=== PATIENT | female | born 1950 | race Caucasian/White ===

== ENCOUNTER → 2017-10-28 | Outpatient (CLI) | payer MEDICARE ==
[~2017-10-28] MED LIST: GADOBUTROL 10 MMOL/10 ML VIAL ONE
== END | disposition home or self-care (01) ==
LOC: CFH 12:39
PROVIDERS: ATTEND Surgery
DX: C50.211 Malignant neoplasm of upper-inner quadrant of right female breast (principal); I51.7 Cardiomegaly
CPT/HCPCS: 82565; A9585; C8908

== ENCOUNTER → 2017-11-16 | Outpatient (CLI) | payer MEDICARE ==
[~2017-11-16] MED LIST changes: +AMLO5TAB2 PO; -GADOBUTROL 10 MMOL/10 ML VIAL ONE; +MULT-709 PO
== END | disposition home or self-care (01) ==
LOC: CARD 10:33
PROVIDERS: ATTEND Internal Medicine Cardiovascular Disease
DX: I10 Essential (primary) hypertension (principal); R07.89 Other chest pain
CPT/HCPCS: 93017; 93306; 93350

== ENCOUNTER → 2017-11-18 | Outpatient (CLI) | payer MEDICARE ==
[~2017-11-18] MED LIST changes: +GADOBUTROL 10 MMOL/10 ML VIAL ONE
== END | disposition home or self-care (01) ==
LOC: CFH 09:38
PROVIDERS: ATTEND Surgery
DX: C50.211 Malignant neoplasm of upper-inner quadrant of right female breast (principal)
CPT/HCPCS: 19085; 77065; 88305; 88341; 88342; A9585; G0461

== ENCOUNTER → 2017-11-19 | Outpatient (CLI) | payer MEDICARE ==
[~2017-11-19] MED LIST changes: -GADOBUTROL 10 MMOL/10 ML VIAL ONE
== END | disposition home or self-care (01) ==
LOC: STAR 12:02
PROVIDERS: ATTEND Surgery
DX: Z01.812 Encounter for preprocedural laboratory examination (principal); C50.911 Malignant neoplasm of unspecified site of right female breast
CPT/HCPCS: 93005

== ENCOUNTER 2017-11-26 09:36 | Day surgery (SDC) | payer MEDICARE ==
[~2017-11-26] VITALS: Ht 167.6 cm; Wt 67.4 kg
[~2017-11-26 09:36] MED LIST changes: +BUPIVACAINE/PF 0.5% ONE; +EPINEPHRINE 1 MG/ML, 1ML ONE; +ISOSULFAN BLUE 10 MG/ML, 5ML IV ONE
[2017-11-26] MEDS ORDERED: GABAPENTIN 300 MG CAPSULE PO ONE (10:00)
[2017-11-26] MEDS ORDERED: ACETAMINOPHEN 500 MG TABLET PO ONE (10:00)
[2017-11-26] MEDS ORDERED: SCOPOLAMINE PATCH, 1.5MG PATCH.TD72 TD ONE (10:00)
[2017-11-26] MEDS ORDERED: LACTATED RINGERS 1,000 ML IV SCH (10:00)
[2017-11-26] MEDS ORDERED: ONDANSETRON 2MG/ML, 2ML IVPush ONE (10:00)
[2017-11-26 10:27] VITALS: BP 138/84
[2017-11-26] MEDS ORDERED: FENTANYL PF 100 MCG/2ML ONE ×2 (11:28→14:09)
[2017-11-26] MEDS ORDERED: MIDAZOLAM 1 MG/ML, 2ML ONE (11:28)
[2017-11-26] MEDS ORDERED: EPHEDRINE 50 MG/ML, 1ML IVPush PRN (11:30)
[2017-11-26] MEDS ORDERED: LABETALOL 5MG/ML, 20ML IV PRN (11:30)
[2017-11-26] MEDS ORDERED: DIPHENHYDRAMINE 50 MG/ML, 1ML IVPush PRN (11:30)
[2017-11-26] MEDS ORDERED: ONDANSETRON 2MG/ML, 2ML IV PRN (11:30)
[2017-11-26] MEDS ORDERED: MEPERIDINE/PF 25MG/0.5ML IVPush PRN (11:30)
[2017-11-26] MEDS ORDERED: OXYcodone 5 MG/5 ML ORAL.SOL UDC PO PRN (11:30)
[2017-11-26] MEDS ORDERED: HYDROmorphone 1 MG/ML, 1ML IV PRN (11:30)
[2017-11-26] MEDS ORDERED: SODIUM CHLORIDE 0.9% 100 ML ONE (11:56)
[2017-11-26] MEDS ORDERED: EPHEDRINE 50 MG/ML, 1ML ONE (12:14)
[2017-11-26] MEDS ORDERED: SUCCINYLCHOLINE 20 MG/ML, 10ML ONE (12:54)
[2017-11-26] MEDS ORDERED: ROCURONIUM 10MG/ML,5ML ONE (12:54)
[2017-11-26] MEDS ORDERED: DEXAMETHASONE 4 MG/ML, 1ML ONE (12:54)
[2017-11-26] MEDS ORDERED: CEFAZOLIN 1,000 MG ONE (12:54)
[2017-11-26] MEDS ORDERED: ONDANSETRON 2MG/ML, 2ML ONE (12:54)
[2017-11-26] MEDS ORDERED: NEOSTIGMINE 1 MG/ML, 10ML ONE (12:54)
[2017-11-26] MEDS ORDERED: PROPOFOL 10 MG/ML, 20ML ONE (12:54)
[2017-11-26] MEDS ORDERED: GLYCOPYRROLATE 0.2MG/1ML, 5ML ONE (12:54)
[2017-11-26] MEDS ORDERED: BUPIVACAINE/PF 0.5% ONE (13:26)
[2017-11-26] MEDS ORDERED: OXYcodone 5 MG/5 ML ORAL.SOL UDC ONE (14:09)
[2017-11-26] MEDS: FENTANYL PF 100 MCG/2ML IV PRN ×2 (14:10→14:15)
== END 2017-11-26 16:10 | disposition home or self-care (01) ==
LOC: OUT 09:36 → EDSTATUS 12:00 → OUT 16:10
PROVIDERS: ATTEND Surgery
DX: C50.911 Malignant neoplasm of unspecified site of right female breast (principal); R59.1 Generalized enlarged lymph nodes; I10 Essential (primary) hypertension; I51.7 Cardiomegaly; Z85.820 Personal history of malignant melanoma of skin; Z72.89 Other problems related to lifestyle; Z87.891 Personal history of nicotine dependence; Z98.890 Other specified postprocedural states
CPT/HCPCS: 19301; 38525; 38792; 88307; 88329; 88333; 88334; A9541; C9898; J0171; J0330; J0690; J1100; J2250; J2405; J2704; J2710; J3010; J3490; J7120

== ENCOUNTER 2018-01-14 13:01 | Day surgery (SDC) | payer MEDICARE ==
[2018-01-12 11:19] LABS: BASOPHILS # (AUTO) 0.04 x10^3/uL (0-0.1); BASOPHILS % (AUTO) 1 % (0-1); EOSINOPHILS # (AUTO) 0.15 x10^3/uL (0-0.4); EOSINOPHILS % (AUTO) 3 % (1-7); LYMPHOCYTES # (AUTO) 1.71 x10^3/uL (1-3.4); LYMPHOCYTES % (AUTO) 31 % (22-44); MD NO; MEAN PLATELET VOLUME 7.1 fL (7.4-10.4); MONOCYTES # (AUTO) 0.38 x10^3/uL (0.2-0.8); MONOCYTES % (AUTO) 7 % (2-9); NEUTROPHILS # (AUTO) 3.28 x10^3/uL (1.8-6.8); NEUTROPHILS % (AUTO) 59 % (42-75); PLATELET COUNT 390 x10^3/uL (130-400); RED BLOOD COUNT 3.99 x10^6/uL (3.82-5.3); RED CELL DISTRIBUTION WIDTH 14.2 % (9.6-15.2)
[~2018-01-14] VITALS: Ht 167.6 cm; Wt 65.1 kg
[~2018-01-14 13:01] MED LIST changes: -AMLO5TAB2 PO; +AMLO5TAB7 PO; -BUPIVACAINE/PF 0.5% ONE; -EPINEPHRINE 1 MG/ML, 1ML ONE; -ISOSULFAN BLUE 10 MG/ML, 5ML IV ONE
[2018-01-14] MEDS ORDERED: MIDAZOLAM 1 MG/ML, 2ML ONE (13:11)
[2018-01-14] MEDS ORDERED: FENTANYL PF 250 MCG/5ML ONE (13:11)
[2018-01-14] MEDS ORDERED: LACTATED RINGERS 1,000 ML IV SCH ×2 (13:19→19:00)
[2018-01-14] MEDS ORDERED: SCOPOLAMINE PATCH, 1.5MG PATCH.TD72 TD ONE (13:30)
[2018-01-14] MEDS ORDERED: ACETAMINOPHEN 500 MG TABLET PO ONE (13:30)
[2018-01-14] MEDS ORDERED: GABAPENTIN 300 MG CAPSULE PO ONE (13:30)
[2018-01-14] MEDS ORDERED: ONDANSETRON ODT 8 MG PO ONE (13:30)
[2018-01-14 13:34] VITALS: BP 133/88
[2018-01-14] MEDS ORDERED: BACITRACIN 50,000 UNIT ONE (14:24)
[2018-01-14] MEDS ORDERED: BUPIVACAINE/PF-EPI 0.5% 1:200K ONE (14:24)
[2018-01-14] MEDS ORDERED: CEFAZOLIN 1,000 MG ONE ×2 (14:24→15:01)
[2018-01-14] MEDS ORDERED: GENTAMICIN 80 MG/2 ML ONE (14:24)
[2018-01-14] MEDS ORDERED: ONDANSETRON 2MG/ML, 2ML ONE (15:01)
[2018-01-14] MEDS ORDERED: PROPOFOL 10 MG/ML, 20ML ONE (15:01)
[2018-01-14] MEDS ORDERED: ROCURONIUM 10MG/ML,5ML ONE (15:01)
[2018-01-14] MEDS ORDERED: DEXAMETHASONE 4 MG/ML, 1ML ONE (15:01)
[2018-01-14] MEDS ORDERED: NEOSTIGMINE 1 MG/ML, 10ML ONE (15:01)
[2018-01-14] MEDS ORDERED: SUCCINYLCHOLINE 20 MG/ML, 10ML ONE (15:01)
[2018-01-14] MEDS ORDERED: GLYCOPYRROLATE 0.2MG/1ML, 5ML ONE (15:01)
[2018-01-14] MEDS ORDERED: BUPIVACAINE/PF-EPI 0.5% 1:200K INFIL ONE (15:12)
[2018-01-14] MEDS ORDERED: LORazepam 2 MG/ML, 1ML IVPush PRN (15:30)
[2018-01-14] MEDS ORDERED: PROMETHAZINE 25 MG/ML, 1ML IV PRN (15:30)
[2018-01-14] MEDS ORDERED: ONDANSETRON ODT 8 MG PO PRN (15:30)
[2018-01-14] MEDS ORDERED: OXYcodone 5 MG/5 ML ORAL.SOL UDC PO PRN (15:30)
[2018-01-14] MEDS ORDERED: PROMETHAZINE 25 MG SUPP PR PRN (15:30)
[2018-01-14] MEDS ORDERED: MEPERIDINE/PF 25MG/0.5ML IVPush PRN (15:30)
[2018-01-14] MEDS ORDERED: ONDANSETRON 2MG/ML, 2ML IV PRN (15:30)
[2018-01-14] MEDS ORDERED: MORPHINE SULFATE 4 MG/ML, 1ML IVPush PRN ×2 (15:30→19:00)
[2018-01-14] MEDS ORDERED: HYDROmorphone 1 MG/ML, 1ML IV PRN (15:30)
[2018-01-14] MEDS ORDERED: FENTANYL PF 100 MCG/2ML ONE ×2 (16:05→17:02)
[2018-01-14] MEDS ORDERED: OXYcodone 5 MG/5 ML ORAL.SOL UDC ONE (17:02)
[2018-01-14] MEDS ORDERED: LORazepam 2 MG/ML, 1ML ONE (17:02)
[2018-01-14] MEDS: FENTANYL PF 100 MCG/2ML IV PRN ×2 (17:05→17:10)
[2018-01-14] MEDS ORDERED: ONDANSETRON 2MG/ML, 2ML IVPush PRN (19:00)
== END 2018-01-14 21:15 | disposition home or self-care (01) ==
LOC: OUT 13:01 → 4NOR 18:39 → OUT 21:15
PROVIDERS: ATTEND Surgery
DX: D05.11 Intraductal carcinoma in situ of right breast (principal); I10 Essential (primary) hypertension; Z87.39 Personal history of other diseases of the musculoskeletal system and connective tissue; Z85.820 Personal history of malignant melanoma of skin; Z98.890 Other specified postprocedural states; Z87.891 Personal history of nicotine dependence; Z72.89 Other problems related to lifestyle
CPT/HCPCS: 19303; 36415; 85025; 88307; C1729; C1762; C1789; J0330; J0690; J1100; J1580; J2060; J2250; J2405; J2704; J2710; J3010; J3490; J7120; Q0162; 88341; 88342; G0378; G0461

== ENCOUNTER → 2018-01-24 | Outpatient (CLI) | payer MEDICARE | END | disposition home or self-care (01) | LOC: CFH 09:22 | PROVIDERS: ATTEND Internal Medicine Hematology & Oncology | DX: Z13.820 Encounter for screening for osteoporosis (principal); M81.0 Age-related osteoporosis without current pathological fracture; C50.211 Malignant neoplasm of upper-inner quadrant of right female breast; Z78.0 Asymptomatic menopausal state | CPT/HCPCS: 77080 ==

== ENCOUNTER → 2018-06-02 | Outpatient (CLI) | payer MEDICARE ==
[~2018-06-02] MED LIST changes: +AMLO-150 PO; -AMLO5TAB7 PO; +ANAS1TAB PO; +CALC1CAP8 PO; +CHOL200052 PO; +DENO60DI IM; +MULT-696 PO
[2018-06-02 13:34] LABS: BASOPHILS # (AUTO) 0.05 x10^3/uL (0-0.1); BASOPHILS % (AUTO) 1 % (0-1); EOSINOPHILS # (AUTO) 0.17 x10^3/uL (0-0.4); EOSINOPHILS % (AUTO) 3 % (1-7); LYMPHOCYTES # (AUTO) 1.84 x10^3/uL (1-3.4); LYMPHOCYTES % (AUTO) 35 % (22-44); MD NO; MEAN CORPUSCULAR HEMOGLOBIN 30.6 pg (27.0-34.8); MEAN CORPUSCULAR HGB CONC 33.5 g/dL (32.4-35.8); MEAN CORPUSCULAR VOLUME 91.5 fL (80-100); MONOCYTES # (AUTO) 0.29 x10^3/uL (0.2-0.8); MONOCYTES % (AUTO) 6 % (2-9); NEUTROPHILS # (AUTO) 2.99 x10^3/uL (1.8-6.8); NEUTROPHILS % (AUTO) 56 % (42-75); PLATELET COUNT 377 x10^3/uL (130-400); RED BLOOD COUNT 4.15 x10^6/uL (3.82-5.3); RED CELL DISTRIBUTION WIDTH 14.6 % (9.6-15.2)
== END | disposition home or self-care (01) ==
LOC: STAR 12:27
PROVIDERS: ATTEND Family Medicine
DX: C50.811 Malignant neoplasm of overlapping sites of right female breast (principal); C50.211 Malignant neoplasm of upper-inner quadrant of right female breast; Z85.820 Personal history of malignant melanoma of skin; Z85.3 Personal history of malignant neoplasm of breast
CPT/HCPCS: 36415; 85025; 93005

== ENCOUNTER 2018-06-09 12:02 | Day surgery (SDC) | payer MEDICARE ==
[~2018-06-09] VITALS: Ht 165.1 cm; Wt 63.8 kg
[2018-06-09 12:38] VITALS: BP 120/83
[2018-06-09] MEDS ORDERED: LACTATED RINGERS 1,000 ML IV SCH (12:50)
[2018-06-09] MEDS ORDERED: GABAPENTIN 300 MG CAPSULE PO ONE (13:00)
[2018-06-09] MEDS ORDERED: DIAZEPAM 5 MG TABLET PO ONE (13:00)
[2018-06-09] MEDS ORDERED: ACETAMINOPHEN 500 MG TABLET PO ONE (13:00)
[2018-06-09] MEDS ORDERED: LIDOCAINE-MPF 2% ,5ML ONE (13:16)
[2018-06-09] MEDS ORDERED: GENTAMICIN 80 MG/2 ML ONE ×2 (13:16→14:58)
[2018-06-09] MEDS ORDERED: CEFAZOLIN 1,000 MG ONE ×2 (13:16→14:58)
[2018-06-09] MEDS ORDERED: SODIUM BICARBONATE 1 MEQ/ML, 50ML VIAL ONE (13:16)
[2018-06-09] MEDS ORDERED: BACITRACIN 50,000 UNIT ONE ×2 (13:17→14:59)
[2018-06-09] MEDS ORDERED: EPINEPHRINE 1 MG/ML, 1ML ONE ×2 (13:17→15:18)
[2018-06-09] MEDS ORDERED: SCOPOLAMINE PATCH, 1.5MG PATCH.TD72 TD ONE (14:07)
[2018-06-09] MEDS ORDERED: GLYCOPYRROLATE 0.2MG/1ML, 5ML ONE (14:33)
[2018-06-09] MEDS ORDERED: ONDANSETRON 2MG/ML, 2ML ONE (14:33)
[2018-06-09] MEDS ORDERED: PROPOFOL 10 MG/ML, 20ML ONE (14:33)
[2018-06-09] MEDS ORDERED: DEXAMETHASONE 4 MG/ML, 5ML ONE (14:33)
[2018-06-09] MEDS ORDERED: ROCURONIUM 10 MG/ML,10ML ONE (14:33)
[2018-06-09] MEDS ORDERED: SUCCINYLCHOLINE 20 MG/ML, 10ML ONE (14:33)
[2018-06-09] MEDS ORDERED: NEOSTIGMINE 1 MG/ML, 10ML ONE (14:33)
[2018-06-09] MEDS ORDERED: FENTANYL PF 250 MCG/5ML ONE (14:34)
[2018-06-09] MEDS ORDERED: BUPIVACAINE/PF-EPI 0.5% 1:200K ONE (15:17)
[2018-06-09] MEDS ORDERED: BUPIVACAINE/PF 0.25% ONE (15:18)
[2018-06-09] MEDS ORDERED: FENTANYL PF 100 MCG/2ML ONE (16:16)
[2018-06-09] MEDS ORDERED: OXYcodone 5 MG/5 ML ORAL.SOL UDC ONE (16:17)
[2018-06-09] MEDS: FENTANYL PF 100 MCG/2ML IV PRN ×2 (16:20→16:27)
[2018-06-09] MEDS ORDERED: PROCHLORPERAZINE 5 MG/ML, 2ML IV PRN (16:30)
[2018-06-09] MEDS ORDERED: PROMETHAZINE 25 MG/ML, 1ML IV PRN (16:30)
[2018-06-09] MEDS ORDERED: METOPROLOL 1 MG/ML, 5ML IV PRN (16:30)
[2018-06-09] MEDS ORDERED: hydrALAzine 20 MG/ML, 1ML IV PRN (16:30)
[2018-06-09] MEDS ORDERED: OXYcodone 5 MG/5 ML ORAL.SOL UDC PO PRN (16:30)
[2018-06-09] MEDS ORDERED: HALOPERIDOL 5 MG/ML IV PRN (16:30)
[2018-06-09] MEDS ORDERED: HYDROmorphone 2 MG/ML, 1ML IVPush PRN (16:30)
[2018-06-09] MEDS ORDERED: LABETALOL 5MG/ML, 20ML IV PRN (16:30)
[2018-06-09] MEDS ORDERED: MEPERIDINE/PF 25MG/0.5ML IVPush PRN (16:30)
[2018-06-09] MEDS ORDERED: HYDROmorphone 1 MG/ML, 1ML ONE (16:36)
== END 2018-06-09 18:00 | disposition home or self-care (01) ==
LOC: OUT 12:02
PROVIDERS: ATTEND Plastic Surgery
DX: N65.1 Disproportion of reconstructed breast (principal); I10 Essential (primary) hypertension; Z85.3 Personal history of malignant neoplasm of breast; Z87.39 Personal history of other diseases of the musculoskeletal system and connective tissue; Z85.828 Personal history of other malignant neoplasm of skin; Z98.890 Other specified postprocedural states; Z87.891 Personal history of nicotine dependence; Z72.89 Other problems related to lifestyle
CPT/HCPCS: 11970; 19316; 19366; C1729; C1789; J0171; J0330; J0690; J1100; J1580; J2405; J2704; J2710; J3010; J3490; J7120

== ENCOUNTER → 2018-10-11 | Outpatient (CLI) | payer MEDICARE | END | disposition home or self-care (01) | LOC: CFH 11:58 | PROVIDERS: ATTEND Internal Medicine Hematology & Oncology | DX: C50.211 Malignant neoplasm of upper-inner quadrant of right female breast (principal); M81.0 Age-related osteoporosis without current pathological fracture | CPT/HCPCS: 77065; G0279 ==

== ENCOUNTER → 2019-10-31 | Outpatient (CLI) | payer MEDICARE | END | disposition home or self-care (01) | LOC: CFH 07:26 | PROVIDERS: ATTEND Internal Medicine Hematology & Oncology | DX: Z12.31 Encounter for screening mammogram for malignant neoplasm of breast (principal); C50.211 Malignant neoplasm of upper-inner quadrant of right female breast; M81.0 Age-related osteoporosis without current pathological fracture | CPT/HCPCS: 76641; 77067 ==

== ENCOUNTER → 2020-02-26 | Outpatient (CLI) | payer MEDICARE | END | disposition home or self-care (01) | LOC: CFH 09:50 | PROVIDERS: ATTEND Internal Medicine Hematology & Oncology | DX: C50.211 Malignant neoplasm of upper-inner quadrant of right female breast (principal); M81.0 Age-related osteoporosis without current pathological fracture; M85.89 Other specified disorders of bone density and structure, multiple sites | CPT/HCPCS: 77080 ==

== ENCOUNTER → 2020-11-04 | Outpatient (CLI) | payer MEDICARE | END | disposition home or self-care (01) | LOC: CFH 09:42 | PROVIDERS: ATTEND Internal Medicine Hematology & Oncology | DX: Z12.31 Encounter for screening mammogram for malignant neoplasm of breast (principal); Z12.39 Encounter for other screening for malignant neoplasm of breast; C50.211 Malignant neoplasm of upper-inner quadrant of right female breast; M81.0 Age-related osteoporosis without current pathological fracture | CPT/HCPCS: 76641; 77063; 77067 ==